=== PATIENT | female | born 1960 | race Caucasian/White ===

== ENCOUNTER 2025-01-04 10:08 | Emergency (ER) | payer BC ==
[~2025-01-04] VITALS: Ht 160 cm; Wt 70.0 kg
[2025-01-04 10:12] VITALS: O2SAT 98
[2025-01-04] MEDS: ACETAMINOPHEN 325MG TABLET PO ONE (10:45)
[2025-01-04] MEDS ORDERED: TOPUD PO (11:16)
[2025-01-04 11:35] VITALS: BP 165/112; PULSE 90; RESP 20; TEMP 36.9; O2SAT 98
== END 2025-01-04 11:36 | disposition home or self-care (01) ==
LOC: ER 10:08
DX: R10.12 Left upper quadrant pain (principal); M79.18 Myalgia, other site; I10 Essential (primary) hypertension; I25.2 Old myocardial infarction; M54.2 Cervicalgia; Z88.5 Allergy status to narcotic agent; V43.62XA Car passenger injured in collision with other type car in traffic accident, initial encounter; Y93.89 Activity, other specified; Y92.89 Other specified places as the place of occurrence of the external cause; Y99.8 Other external cause status
CPT/HCPCS: 74176; 93005; 99284